=== PATIENT | male | born 1950 | race Caucasian/White ===

== ENCOUNTER 2021-06-17 07:40 | Day surgery (SDC) | payer BC ==
[2021-06-15 08:26] VITALS: BMI 27.9
[2021-06-17] MEDS ORDERED: LACTATED RINGERS 1,000 ML IV ONE (08:12)
[2021-06-17 08:21] VITALS: TEMP 96.2
[2021-06-17] MEDS ORDERED: PROPOFOL 10 MG/ML 20 ML VIAL IV ONE (09:40)
--- NOTE | 2021-06-17 09:58 | P.OP ---
Date of Procedure: 06/17/21 Preoperative Diagnosis: Screening colonoscopy Postoperative Diagnosis: Sigmoid colon polyp Procedure(s) Performed: Colonoscopy Anesthesia: MAC Surgeon: Swapnil Yañez Pathology: other (Sigmoid colon polyp) Condition: stable Disposition: PACU Description of Procedure: The patient's placed on the endoscopy table in the lateral position. He received IV sedation. Digital rectal exam was performed which revealed no abnormalities. The prostate was symmetric without nodules. The flexible colonoscope was then placed patient anus passed throughout the entire colon. The ileocecal valve was visualized. Cecum, ascending and transverse colon appeared normal. The descending colon appeared normal. Scope was then brought back and sigmoid colon a small sessile polyp was seen. This removed with the cold forcep. Scope was brought back the rectum and this appeared normal. Scope was withdrawn for patient.
--- NOTE | 2021-06-17 09:58 | P.GSHP ---
History of Present Illness H&P Date: 06/17/21 Chief Complaint: Screening colonoscopy This a 71-year-old male who presents today for screening colonoscopy. Patient denies a significant GI complaints. Past Medical History Past Medical History: Cancer, Hyperlipidemia, Hypertension, Prostate Disorder Additional Past Medical History / Comment(s): tremors, hx prostate cancer- received radiation History of Any Multi-Drug Resistant Organisms: None Reported Past Surgical History: Hernia Repair Additional Past Surgical History / Comment(s): orif rt ankle, surgery for fx rt arm Past Anesthesia/Blood Transfusion Reactions: No Reported Reaction Smoking Status: Former smoker - Past Family History Mother Family Medical History: Cancer Medications and Allergies Home Medications Medication Instructions Recorded Confirmed Type Atorvastatin [Lipitor] 80 mg PO HS 03/02/16 06/15/21 History Multivitamins, Thera [Multivitamin] 1 tab PO DAILY 03/02/16 06/15/21 History Carbidopa-Levodopa 25-100 mg 1 each PO TID 06/15/21 06/15/21 History [Sinemet 25-100] Fish Oil/Dha/Epa [Fish Oil 1,200 2 each PO HS 06/15/21 06/15/21 History mg Fish Oil] amLODIPine BESYLATE/BENAZEPRIL 1 each PO QAM 06/15/21 06/15/21 History [amLODIPine BESYLATE/BENAZEPRIL 5-20 mg] Allergies Allergy/AdvReac Type Severity Reaction Status Date / Time No Known Allergies Allergy Verified 06/15/21 08:15 Surgical - Exam Vital Signs Temp Pulse Resp BP Pulse Ox 96.2 F L 63 18 144/67 96 06/17/21 08:14 06/17/21 08:14 06/17/21 08:14 06/17/21 08:14 06/17/21 08:14 - General well developed, well nourished, no distress - Eyes PERRL - ENT normal pinna - Neck no masses - Respiratory normal expansion - Cardiovascular Rhythm: regular - Abdomen Abdomen: soft, non tender Assessment and Plan Assessment: We'll perform screening colonoscopy
[2021-06-17 10:06] VITALS: RESP 16
[2021-06-17 10:18] VITALS: BP 106/48; PULSE 62
[2021-06-17] MEDS ORDERED: LACTATED RINGERS 1,000 ML IV SCH (10:33)
[2021-06-17] MEDS ORDERED: LIDOCAINE 1% (10MG/ML) FOR IV START INTRADERMA PRN (10:33)
== END 2021-06-17 10:34 | disposition home or self-care (01) ==
LOC: ORWHC2ENDO 07:40
PROVIDERS: ATTEND Surgery
DX: Z12.11 Encounter for screening for malignant neoplasm of colon (principal); K63.5 Polyp of colon; I10 Essential (primary) hypertension; E78.5 Hyperlipidemia, unspecified; Z85.46 Personal history of malignant neoplasm of prostate; Z92.3 Personal history of irradiation; R25.1 Tremor, unspecified; Z98.890 Other specified postprocedural states; Z87.891 Personal history of nicotine dependence; Z87.81 Personal history of (healed) traumatic fracture; Z80.9 Family history of malignant neoplasm, unspecified; Z79.899 Other long term (current) drug therapy
CPT/HCPCS: 88305; 45380; J2704

== ENCOUNTER → 2023-06-29 | Outpatient (CLI) | payer MEDICARE ==
--- NOTE | 2023-06-29 09:35 | US ---
EXAMINATION TYPE: US scrotum with doppler. TECHNIQUE: Grayscale and color Doppler Duplex imaging performed of the scrotum. DATE OF EXAM: 06/29/2023 COMPARISON: NONE CLINICAL INDICATION: Male, 73 years old with history of N49.2 INFLAMMATORY DISORDERS OF SCROTUM; Infl ammatory disorders of scrotum. Left scrotum larger x 5 months. EXAM MEASUREMENTS: TESTICLES: Right Testicle: 3.1 x 2.0 x 1.5 cm Left Testicle: 3.6 x 2.2 x 1.9 cm. *An exophytic nodule is seen along the superior margin of the te sticle: 0.5 x 0.3 x 0.3 cm. Findings suggest a testicular appendage. EPIDIDYMIS HEAD: Right Epididymis: 0.6 x 0.7 x 1.0 cm Left Epididymis: Not seen Doppler performed to assess for testicular vascularity; bilateral color flow and waveforms are seen. Presence of hydroceles: Right: 1.7 x x 0.5 cm. Left appears complicated with mild internal echoes : 5.6 x 6.0 x 3.3 cm. Presence of varicoceles: None seen. IMPRESSION: 1. No sonographic evidence for testicular torsion or epididymoorchitis. 2. Moderate to large left hydrocele with some internal floating debris. Trace hydrocele on the right.
== END | disposition home or self-care (01) ==
LOC: RADUSWWP 07:25
PROVIDERS: ATTEND Family Medicine
DX: N43.3 Hydrocele, unspecified (principal); N49.2 Inflammatory disorders of scrotum
CPT/HCPCS: 76870; 93975